=== PATIENT | male | born 1985 ===

== ENCOUNTER 2021-08-20 21:41 | Emergency (ER) | payer SELFPAY | END 2021-08-20 22:19 | disposition left against medical advice (07) | LOC: EMS 21:42 | DX: F10.129 Alcohol abuse with intoxication, unspecified (principal); Z53.21 Procedure and treatment not carried out due to patient leaving prior to being seen by health care provider ==

== ENCOUNTER 2025-03-27 23:00 | Emergency (ER) | payer OTHER ==
[~2025-03-27] VITALS: Ht 170.2 cm; Wt 75.0 kg
[2025-03-27 23:01] VITALS: TEMP 97.5
[2025-03-28] MEDS: LORazepam 2 MG/ML VIAL IM ONE (00:39)
[2025-03-28 02:50] LABS: CALCIUM, TOTAL 7.8 mg/dL (8.8-10.5); CREATININE 0.99 mg/dL (0.60-1.30); GLOMERULAR FILTR. RATE CALC > 60 mL/min (>60); GLUCOSE,RANDOM 112 mg/dL (70-110); PLATELET COUNT (AUTO) 326 K/uL (150-450); RED BLOOD CELL COUNT(AUTO) 4.74 MIL/uL (4.50-5.90); RED CELL DISTRIBUTION WIDTH 14.6 % (11.5-14.5); SODIUM SERUM 142 mmol/L (136-145); UREA NITROGEN, BLOOD 7 mg/dL (7-18); WHITE BLOOD COUNT (AUTO) 4.1 K/uL (4.5-11.0)
[2025-03-28 03:01] LABS: PH,URINE DRUG SCREEN 5.0 (5.0-8.0)
[2025-03-28 03:08] LABS: AMPHET/METH SCREEN,URINE NEGATIVE (NEGATIVE); BARBITURATE SCREEN, URINE NEGATIVE (NEGATIVE); CANNABINOID SCREEN,URINE POSITIVE (NEGATIVE); COCAINE SCREEN,URINE NEGATIVE (NEGATIVE); METHADONE SCREEN, URINE NEGATIVE (NEGATIVE)
[2025-03-28 03:09] LABS: ALCOHOL, URINE DRUG SCREEN POSITIVE (NEGATIVE)
[2025-03-28 06:29] VITALS: BP 119/80; PULSE 88; RESP 17; O2SAT 97
== END 2025-03-28 06:41 | disposition home or self-care (01) ==
LOC: EMS 23:40
DX: F10.129 Alcohol abuse with intoxication, unspecified (principal); R51.9 Headache, unspecified; Z79.899 Other long term (current) drug therapy; Y90.8 Blood alcohol level of 240 mg/100 ml or more
CPT/HCPCS: 70450; 80048; 80307; 85025; 96372; 99291; G0480; J1200; J1630; J2060